=== PATIENT | female | born 1950 | race Caucasian/White ===

== ENCOUNTER 2016-04-28 17:19 | Inpatient (IN) | payer OTHER ==
[2016-04-28] MEDS ORDERED: ROBITUSSIN-DM PO PRN (19:46)
[2016-04-28] MEDS ORDERED: VITAMIN D PO SCH (20:00)
[2016-04-28] MEDS: LOVENOX SUBQ SCH (20:53)
[2016-04-28] MEDS: LEVAQUIN 500 MG/D5W 100 ML IV SCH (20:53)
[2016-04-28] MEDS: PROTONIX IV SCH (20:54)
[2016-04-28] MEDS: SODIUM CHLORIDE 0.9% INJ SCH (20:54)
[2016-04-28] MEDS: PROZAC PO SCH (20:56)
[2016-04-28] MEDS: KLONOPIN PO SCH (20:56)
--- NOTE | 2016-04-28 22:05 | HISTORY AND PHYSICAL ---
CHIEF COMPLAINT: Shortness of breath, cough, and wheezing. HISTORY OF PRESENT ILLNESS: She is a 65-year-old white female, recently discharged from the hospital 2 months ago with acute COPD exacerbation. Patient stopped smoking. She was treated for the last few days outpatient medical management. She was seen in our office with extreme wheezing, unable to walk and basically admitted to the hospital for acute COPD exacerbation. She denied any chest pain, PND, orthopnea. PAST MEDICAL HISTORY: Noncritical left internal carotid artery stenosis, COPD, Crohn's disease, depression, sleep apnea, optic neuritis on the left side, osteoporosis, acid reflux disease, metabolic syndrome. PAST SURGICAL HISTORY: Cholecystectomy, hysterectomy, cataract surgery on the left side, small bowel resection for Crohn's disease by Dr. Kaur. MEDICINES: Abilify 5 mg daily, aspirin 81 mg daily, Breo 1 capsule inhalation daily, Flonase as needed, Prilosec 40 daily, Pentasa 500 three times daily, Proventil as needed, Prozac 40 mg b.i.d., Spiriva 1 capsule inhalation daily, trazodone 100 at bedtime, vitamin D 50,000 units once a week. ALLERGIES: Celebrex, penicillin, Phenergan. SOCIAL HISTORY: . No children. Lives in [place]. Single. Quit smoking 6 months ago. No alcohol. Retired. FAMILY HISTORY: Father . Cause was not known. Mom is still alive. HEALTH MAINTENANCE: Flu vaccine 2015, pneumonia 2014 and last mammography January 2016, colonoscopy 2015. REVIEW OF SYSTEMS: HEENT: No headache. No vision problem. No sore throat. No earache. Neck: No goiter. No lymphadenopathy. No bruit. Cardiopulmonary: No chest pain. Shortness of breath present, cough and wheezing, dyspnea on exertion. No PND, no orthopnea. No swelling of feet. GI: No nausea, vomiting, abdominal pain, diarrhea, altered bowel habit or bleeding per rectum. : No history of hesitancy, frequency. No dysuria. Skin: No skin rashes. Neurologic: No focal symptoms or weakness. PHYSICAL EXAMINATION: VITAL SIGNS: Low-grade fever, tachycardic, blood pressure is stable. 5 feet 4, 219 pounds. HEENT: Atraumatic, normocephalic. Pupils equal, reactive to light. TMs are normal. Nose and throat within normal limits. NECK: Supple. No lymphadenopathy. No goiter. CHEST: Bilateral wheezing. HEART: Sounds are very distant. BREASTS: Exam deferred. ABDOMEN: Belly is soft, nontender. Good bowel sounds. No masses palpable. EXTREMITIES: No peripheral edema, cyanosis. NEUROLOGIC: No obvious neurological deficits. INVESTIGATIONS: Pending. ASSESSMENT AND PLAN: 65-year-old white female, admitted to the hospital basically for acute chronic obstructive pulmonary disease exacerbation, unable to improve with outpatient medical management. PLAN: 1. Oxygen as needed. IV Levaquin, bronchodilators, IV steroids. 2. Deep venous thrombosis and gastrointestinal prophylaxis with Lovenox and Protonix. 3. Reconcile home medications. Follow up on the pending laboratory. Crohn's disease is stable. Initiate standing vaccination protocol.
[2016-04-28] MEDS: SOLU-MEDROL IV SCH (23:46)
[2016-04-28] MEDS: AMBIEN PO PRN (23:49)
[2016-04-28] MEDS: HUMALOG SUBQ SCH (23:52)
[2016-04-29 04:40] LABS: ALLEN TEST YES; BE 0.5 mmoll (-3.0-3.0); BLOOD TYPE ARTERIAL; DRAW SITE R RADIAL; PCO2(98.6) 44 mmHg (35-45); PO2(98.6) 73 mmHg (60-100); SAMPLE BLOOD; pH(98.6) 7.38 (7.35-7.45)
[2016-04-29 04:41] LABS: MODALITY CANNULA
[2016-04-29] MEDS: SOLU-MEDROL IV SCH ×4 (06:07→20:33)
[2016-04-29] MEDS: HUMALOG SUBQ SCH ×3 (06:08→16:00)
[2016-04-29 07:05] LABS: AGAP 16; ALBUMIN 3.5 g/dL (3.5-5.0); ALKALINE PHOSPHATASE 69 U/L (32-104); BUN 12 mg/dL (8-22); CALCIUM 8.6 mg/dL (8.8-10.2); CHLORIDE 100 mmol/L (98-107); COSMO 277; GOT 13 U/L (10-30); GPT 16 U/L (10-36); POTASSIUM 3.8 mmol/L (3.5-5.1); SODIUM 137 mmol/L (136-145); TCO2 21 mmol/L (25-35); TOTAL BILIRUBIN 0.21 mg/dL (0.20-1.00); TOTAL PROTEIN 6.5 g/dL (6.3-8.3)
[2016-04-29 07:12] LABS: BASO% 0.1 % (0.0-0.8); HEMATOCRIT 36.1 % (37.0-47.0); HEMOGLOBIN 12.2 g/dL (12.0-16.0); IMM GRAN# 0.04 X1000 (0.0-0.04); IMM GRAN% 0.2 % (0.0-0.5); MANUAL DIFF NEEDED? YES; MCH 32.1 PG (27-31); MCHC 33.8 g/dL (33-37); MONO# 0.22 X1000 (0.11-0.59); MONO% 1.3 % (1.7-9.3); MPV 9.3 FL (7.4-10.4); NEUT% 91.4 % (42.2-75.2); PLT 312 X1000 (130-400)
[2016-04-29 07:32] LABS: BANDS 4 % (0-1); LYMPHS 14 % (21-51)
[2016-04-29] MEDS: PENTASA PO SCH ×3 (08:23→17:41)
[2016-04-29] MEDS: ABILIFY PO SCH (08:23)
[2016-04-29] MEDS: ASPIRIN PO SCH (08:23)
[2016-04-29] MEDS: BREO ELLIPTA 100/25 MCG INH INH SCH (08:24)
[2016-04-29] MEDS: PROZAC PO SCH ×2 (08:24→20:33)
--- NOTE | 2016-04-29 10:02 | Diag Imaging Result Document ---
PROCEDURE NAME: CHEST-2 VIEWS - 04/29/2016 CHEST X-RAY 2 VIEWS: COMPARISON: 05/22/2015. FINDINGS: Stable COPD. Stable calcified granulomas on the left. There is some slight worsening linear atelectasis or infiltrate in the right lung base. Stable mild scarring in the lung bases. Heart size remains normal. IMPRESSION: Slight worsening in the linear opacity/atelectasis in the right lung base. Otherwise stable COPD with pulmonary scarring.
[2016-04-29] MEDS: DUONEB (A & A) INH PRN ×3 (10:28→20:23)
[2016-04-29] MEDS: KLONOPIN PO SCH (20:32)
[2016-04-29] MEDS: LEVAQUIN 500 MG/D5W 100 ML IV SCH (20:33)
[2016-04-29] MEDS: LOVENOX SUBQ SCH (20:33)
[2016-04-29] MEDS: PROTONIX IV SCH (20:33)
[2016-04-29] MEDS: SODIUM CHLORIDE 0.9% INJ SCH (20:33)
[2016-04-29] MEDS: AMBIEN PO PRN (20:56)
[2016-04-30] MEDS: SOLU-MEDROL IV SCH ×4 (05:17→22:06)
[2016-04-30] MEDS: HUMALOG SUBQ SCH ×4 (06:32→22:51)
[2016-04-30] MEDS: BREO ELLIPTA 100/25 MCG INH INH SCH (08:10)
[2016-04-30] MEDS: DUONEB (A & A) INH PRN ×3 (08:10→19:58)
--- NOTE | 2016-04-30 08:28 | Diag Imaging Result Document ---
PROCEDURE NAME: ANGIOGRAM/PULMONARY ARTERIES - 04/30/2016 CT OF THE CHEST WITH INTRAVENOUS CONTRAST AND CLARITY: FINDINGS: There are no filling defects in the pulmonary arteries. The thoracic aorta is not distended and there is no evidence of dissection. There is a small hiatal hernia. There is emphysematous change. There is a somewhat microlobulated nodular opacity present in the posterior right upper lobe on image 63 measuring a centimeter in diameter. There are no previous thoracic studies available for comparison, however there is a previous abdominal study from 06/04/2014. There is worsened opacification of the right lower lobe than on the previous examination of 06/04/2014 which may largely be due to atelectasis, however the possibility of pneumonia cannot be excluded. There are a number of nonspecific mediastinal nodes of a centimeter in size or smaller. There is apparent right hilar adenopathy. There are calcifications in the left hilum and subcarina. There is some spondylosis in the thoracic spine. IMPRESSION: 1. No evidence of pulmonary embolus. Right upper lobe nodule. The possibility of neoplastic disease cannot be excluded and further evaluation is recommended. 2. Atelectasis versus pneumonia in the right lower lobe. Advise follow up until clear.
[2016-04-30] MEDS: ASPIRIN PO SCH (10:51)
[2016-04-30] MEDS: ABILIFY PO SCH (10:51)
[2016-04-30] MEDS: PROZAC PO SCH ×2 (10:51→22:06)
[2016-04-30] MEDS: PENTASA PO SCH ×3 (10:51→17:23)
[2016-04-30] MEDS ORDERED: SPIRIVA INH ONE (12:00)
[2016-04-30] MEDS: LEVAQUIN 500 MG/D5W 100 ML IV SCH (22:05)
[2016-04-30] MEDS: PROTONIX IV SCH (22:06)
[2016-04-30] MEDS: LOVENOX SUBQ SCH (22:06)
[2016-04-30] MEDS: SODIUM CHLORIDE 0.9% INJ SCH (22:06)
[2016-04-30] MEDS: KLONOPIN PO SCH (22:06)
[2016-04-30] MEDS: AMBIEN PO PRN (22:08)
[2016-05-01] MEDS: SOLU-MEDROL IV SCH ×3 (06:03→21:27)
[2016-05-01] MEDS: HUMALOG SUBQ SCH ×4 (06:38→21:28)
[2016-05-01] MEDS: PENTASA PO SCH ×3 (08:37→16:41)
[2016-05-01] MEDS: PROZAC PO SCH ×2 (08:37→21:27)
[2016-05-01] MEDS: ABILIFY PO SCH (08:37)
[2016-05-01] MEDS: ASPIRIN PO SCH (08:37)
[2016-05-01] MEDS: DUONEB (A & A) INH PRN ×3 (09:48→21:35)
[2016-05-01] MEDS: BREO ELLIPTA 100/25 MCG INH INH SCH (09:50)
[2016-05-01] MEDS: SPIRIVA INH SCH (09:50)
--- NOTE | 2016-05-01 12:24 | PROGRESS NOTE ---
DATE: 05/01/2016 SUBJECTIVE: Ms. Castellanos is a 65-year-old, white female patient, admitted with chest congestion, cough, wheezing, shortness of breath not responding to outpatient treatment. Known case of COPD. Since admission, the patient is doing better. Shortness of breath, cough and chest congestion improving. The patient is ambulating some. She denied any fever or chills. Oral intake is improving. No typical chest pain. Denied abdominal pain, nausea, complaining of diarrhea this morning. No blood or mucus in the stool. The patient does have history of Crohn's disease. No dysuria or hematuria. No leg swelling. Admission history and physical noted. Past medical history significant for COPD, Crohn's disease, sleep apnea, optic neuritis on the left side, osteoporosis, gastritis, and reflux disease, metabolic syndrome. OBJECTIVE: Her vital signs noted. Neck supple. No JVD. Lungs: Bilateral good air entry present. Occasional wheezing. CVS: S1 and S2 heard. Abdomen soft, globular. Bowel sounds present. Extremities: No cyanosis, clubbing. No acute DVT. 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 CONSIDERATION: 1. Acute exacerbation of chronic obstructive pulmonary disease most likely due to bronchitis. Her CTA of the pulmonary artery did reveal a right upper lobe nodule. Atelectasis versus pneumonia in the right lower lobe. 2. Her other problem includes history of Crohn's disease. Gastritis and reflux disease. PLAN: We will continue pulmonary toilet, bronchodilator treatment. Close observation. Admission lab data noted. Accu-Chek results reviewed. I am going to repeat blood work tomorrow. Fall precaution. Overall plan discussed with patient and daughter. They are in agreement.
[2016-05-01] MEDS: LEVAQUIN 500 MG/D5W 100 ML IV SCH (21:26)
[2016-05-01] MEDS: SODIUM CHLORIDE 0.9% INJ SCH (21:27)
[2016-05-01] MEDS: PROTONIX IV SCH (21:27)
[2016-05-01] MEDS: KLONOPIN PO SCH (21:27)
[2016-05-01] MEDS: LOVENOX SUBQ SCH (21:28)
[2016-05-01] MEDS: AMBIEN PO PRN (21:42)
[2016-05-02] MEDS: SOLU-MEDROL IV SCH ×3 (05:02→20:28)
[2016-05-02 06:52] LABS: MANUAL DIFF NEEDED? NO
[2016-05-02 07:13] LABS: BASO% 0.2 % (0.0-0.8); EOS# 0.01 X1000 (0.0-0.7); EOS% 0.1 % (0.0-10.0); HEMATOCRIT 38.5 % (37.0-47.0); HEMOGLOBIN 12.9 g/dL (12.0-16.0); IMM GRAN% 1.4 % (0.0-0.5); LYMPH# 1.65 X1000 (1.2-3.4); LYMPH% 11.1 % (20.5-51.1); MCH 31.9 PG (27-31); MCHC 33.5 g/dL (33-37); MCV 95.3 FL (81-99); MONO# 0.77 X1000 (0.11-0.59); MONO% 5.2 % (1.7-9.3); MPV 8.9 FL (7.4-10.4); PLT 356 X1000 (130-400); RBC 4.04 XMIL (4.2-5.4)
[2016-05-02 07:54] LABS: ALBUMIN 3.4 g/dL (3.5-5.0); ALKALINE PHOSPHATASE 65 U/L (32-104); BUN 22 mg/dL (8-22); CALCIUM 8.4 mg/dL (8.8-10.2); GOT 20 U/L (10-30); GPT 22 U/L (10-36); MAGNESIUM 1.9 mg/dL (1.5-2.7); TCO2 18 mmol/L (25-35); TOTAL BILIRUBIN 0.23 mg/dL (0.20-1.00); TOTAL PROTEIN 6.1 g/dL (6.3-8.3)
[2016-05-02 08:16] LABS: CHLORIDE 99 mmol/L (98-107); POTASSIUM 4.9 mmol/L (3.5-5.1); SODIUM 136 mmol/L (136-145)
[2016-05-02 08:20] LABS: COSMO 276
[2016-05-02 08:21] LABS: AGAP 19
[2016-05-02] MEDS: ASPIRIN PO SCH (09:16)
[2016-05-02] MEDS: PROZAC PO SCH ×2 (09:16→20:28)
[2016-05-02] MEDS: ABILIFY PO SCH (09:16)
[2016-05-02] MEDS: PENTASA PO SCH ×3 (09:16→17:19)
[2016-05-02] MEDS: SPIRIVA INH SCH (09:48)
[2016-05-02] MEDS: BREO ELLIPTA 100/25 MCG INH INH SCH (09:48)
[2016-05-02] MEDS: DUONEB (A & A) INH PRN ×2 (09:49→21:40)
[2016-05-02] MEDS: HUMALOG SUBQ SCH ×4 (10:22→21:30)
[2016-05-02] MEDS: FLAGYL PO SCH ×2 (12:42→20:28)
--- NOTE | 2016-05-02 15:13 | PROGRESS NOTE ---
DATE: 05/02/2016 SUBJECTIVE: Ms. Eryn Castellanos is doing better. Since I put her on oxygen her breathing and chest congestion is improving. Does have mild cough with scanty sputum production. No high-grade fever or chills. Occasional mild diarrhea. No nausea, no dysuria or hematuria. No typical chest pain. OBJECTIVE: Vital signs: Her vital signs reviewed. Neck: Is supple. No JVD. Lungs: Bibasilar crepitations. Occasional wheezing. CVS: S1 and S2 heard. Abdomen: Soft. No distention. Bowel sounds present. Extremities: No cyanosis, clubbing. No acute DVT. 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 LABORATORY DATA: Glucose site count 14.81, hemoglobin 12.9, hematocrit 38.5, platelet count 356,000. Electrolytes: BUN was 22, creatinine 0.8. CONSIDERATION: 1. Chronic obstructive pulmonary disease exacerbation. 2. Possible pneumonia. 3. History of Crohn's disease. 4. Pulmonary nodule. 5. Leukocytosis. PLAN: I am going to add Flagyl for possible colitis. Continue rest of the treatment. Close observation. Overall plan discussed with the patient and she is in agreement.
[2016-05-02] MEDS: LEVAQUIN 500 MG/D5W 100 ML IV SCH (20:27)
[2016-05-02] MEDS: KLONOPIN PO SCH (20:28)
[2016-05-02] MEDS: LOVENOX SUBQ SCH (20:28)
[2016-05-02] MEDS: SODIUM CHLORIDE 0.9% INJ SCH (20:28)
[2016-05-02] MEDS: PROTONIX IV SCH (20:28)
[2016-05-02] MEDS: AMBIEN PO PRN (20:29)
[2016-05-03] MEDS: FLAGYL PO SCH ×3 (05:08→22:07)
[2016-05-03] MEDS: SOLU-MEDROL IV SCH ×2 (05:09→17:10)
[2016-05-03] MEDS: HUMALOG SUBQ SCH ×4 (06:27→23:52)
[2016-05-03] MEDS: SPIRIVA INH SCH (08:44)
[2016-05-03] MEDS: BREO ELLIPTA 100/25 MCG INH INH SCH (08:44)
[2016-05-03] MEDS: PROZAC PO SCH ×2 (09:19→22:05)
[2016-05-03] MEDS: ABILIFY PO SCH (09:19)
[2016-05-03] MEDS: ASPIRIN PO SCH (09:19)
[2016-05-03] MEDS: PENTASA PO SCH ×3 (09:20→17:09)
--- NOTE | 2016-05-03 11:27 | PROGRESS NOTE ---
DATE: 05/03/2016 OBJECTIVE: Vital Signs: Ms. Castellanos's vital signs are stable. Blood pressure is 178/82. LABORATORY DATA: Her white count is 14.81, hemoglobin 12.9, hematocrit 35.5 cm. She is on Flagyl, as well as Solu-Medrol. Stool is negative for Clostridium difficile. BUN is 22. She is tolerating oral feedings very well and the diarrhea is under control. We will continue with the current management. -5
[2016-05-03] MEDS: DUONEB (A & A) INH PRN (15:40)
[2016-05-03] MEDS: LEVAQUIN 500 MG/D5W 100 ML IV SCH (22:05)
[2016-05-03] MEDS: AMBIEN PO PRN (22:06)
[2016-05-03] MEDS: KLONOPIN PO SCH (22:06)
[2016-05-03] MEDS: PROTONIX IV SCH (22:07)
[2016-05-03] MEDS: SODIUM CHLORIDE 0.9% INJ SCH (22:07)
[2016-05-03] MEDS: LOVENOX SUBQ SCH (22:08)
[2016-05-04] MEDS: FLAGYL PO SCH (05:02)
[2016-05-04] MEDS: SOLU-MEDROL IV SCH (05:02)
[2016-05-04 07:29] VITALS: BP 173/80
[2016-05-04] MEDS: HUMALOG SUBQ SCH (08:28)
[2016-05-04] MEDS: PENTASA PO SCH (08:29)
[2016-05-04] MEDS: PROZAC PO SCH (08:29)
[2016-05-04] MEDS: ASPIRIN PO SCH (08:30)
[2016-05-04] MEDS: ABILIFY PO SCH (08:30)
--- NOTE | 2016-05-04 19:29 | DISCHARGE SUMMARY ---
ADMISSION DATE: 04/28/2016 DISCHARGE DATE: 05/04/2016 DISCHARGING DIAGNOSIS: Acute chronic obstructive pulmonary disease exacerbation with fibrosis and right lower lobe pneumonia. SECONDARY DIAGNOSES: 1. Right upper lobe nodule, spiculated, pending PET scan. 2. Noncritical left internal carotid artery stenosis. 3. Chronic obstructive pulmonary disease. 4. Crohn disease. 5. Depression. 6. Sleep apnea. 7. Optic neuritis on the left side. 8. Osteoporosis. 9. Acid reflux disease. 10. Metabolic syndrome. BRIEF HISTORY: Please see the H and P that was done on 04/28/2016. In brief, she is a 65-year- old white female, who was admitted to the hospital with shortness of breath, cough, and wheezing. Not able to improve with outpatient medical management. HOSPITAL COURSE: She was given oxygen, bronchodilators, IV steroids, IV antibiotics. CT of the chest with pulmonary arteriogram reported no evidence of PE, right upper lobe nodule, spiculated, and atelectasis versus pneumonia in the right lower lobe. The patient is much improved at the time of discharge. Pneumococcal vaccine was given 03/12/2016. DISCHARGE INSTRUCTIONS: 1. Prilosec 40 mg daily. 2. Pentasa 1000 mg p.o. t.i.d. 3. Abilify 5 mg daily. 4. Aspirin 81 mg daily. 5. Trazodone 100 mg in the evening. 6. Vitamin D 50,000 units 7 days. 7. ProAir as needed. 8. Breo 1 capsule inhalation daily. 9. Spiriva 1 capsule inhalation daily. 10. Klonopin 0.5 at bedtime. 11. Prozac 40 mg p.o. b.i.d. 12. Levaquin 500 mg daily for 7 days. 13. Medrol Dosepak. 14. An outpatient PET scan for follow up on right upper lobe nodule. 15. Follow up in my office next week.
== END 2016-05-04 09:51 | disposition home or self-care (01) | DRG 190 ==
LOC: DIRADM 17:19 → 3N 18:39
PROVIDERS: ADMIT Internal Medicine; ATTEND Internal Medicine
DX: J44.0 Chronic obstructive pulmonary disease with (acute) lower respiratory infection (principal); J18.9 Pneumonia, unspecified organism; E88.81 Metabolic syndrome and other insulin resistance; K50.90 Crohn's disease, unspecified, without complications; I65.22 Occlusion and stenosis of left carotid artery; H46.9 Unspecified optic neuritis; J44.1 Chronic obstructive pulmonary disease with (acute) exacerbation; F32.9 Major depressive disorder, single episode, unspecified; G47.30 Sleep apnea, unspecified; M81.0 Age-related osteoporosis without current pathological fracture; K52.9 Noninfective gastroenteritis and colitis, unspecified; R91.1 Solitary pulmonary nodule; K21.9 Gastro-esophageal reflux disease without esophagitis; Z79.899 Other long term (current) drug therapy; Z90.49 Acquired absence of other specified parts of digestive tract; Z79.82 Long term (current) use of aspirin; Z87.891 Personal history of nicotine dependence; Z79.51 Long term (current) use of inhaled steroids
CPT/HCPCS: 71020; 71275; 80053; 82805; 82948; 83735; 83880; 84484; 85025; 87324; 89055; 94640; 94761; C9113; J1650; J1815; J2920; J2930; Q9967; S0164

== ENCOUNTER 2016-10-12 15:18 | Inpatient (IN) ==
[2016-10-12] MEDS ORDERED: TESSALON PO PRN (17:26)
[2016-10-12 17:55] LABS: ALLEN TEST YES; BE 1.8 mmoll (-3.0-3.0); BLOOD TYPE ARTERIAL; DRAW SITE R RADIAL; METHB 0.2 % (0.0-1.5); O2(CT) 16.8 mL/dL (15.0-23.0); PCO2(98.6) 48 mmHg (35-45); PO2(98.6) 83 mmHg (60-100); SAMPLE BLOOD; SAO2 96.6 % (95.0-100.0); THB 12.4 g/dL (11.5-17.4); pH(98.6) 7.37 (7.35-7.45)
[2016-10-12 17:56] LABS: MODALITY CANNULA
[2016-10-12] MEDS ORDERED: VITAMIN D PO SCH (18:00)
[2016-10-12 18:29] LABS: AGAP 12; ALBUMIN 3.9 g/dL (3.5-5.0); ALKALINE PHOSPHATASE 76 U/L (32-104); BUN 14 mg/dL (8-22); CALCIUM 8.8 mg/dL (8.8-10.2); CHLORIDE 104 mmol/L (98-107); COSMO 283; GOT 11 U/L (10-30); GPT 16 U/L (10-36); POTASSIUM 3.6 mmol/L (3.5-5.1); SODIUM 142 mmol/L (136-145); TCO2 26 mmol/L (25-35); TOTAL BILIRUBIN 0.15 mg/dL (0.20-1.00); TOTAL PROTEIN 6.2 g/dL (6.3-8.3)
--- NOTE | 2016-10-12 19:27 | HISTORY AND PHYSICAL ---
CHIEF COMPLAINT: Shortness of breath, cough, and wheezing. HISTORY OF PRESENT ILLNESS: She is a 65-year-old white female who was seen in our clinic last Tuesday with URI symptoms and treated as an outpatient, failed to improve with shortness of breath, cough, wheezing, mostly URI symptoms. She is hypoxic on room air and she is markedly wheezing. Based on the clinical grounds, she has been hospitalized for acute COPD exacerbation. She also has a spiculated lesion in the right upper lobe which was improved on follow up CT in June 2016. She stopped smoking. Basically, admitted to the hospital for acute COPD exacerbation. REVIEW OF SYSTEMS: HEENT: Congestion nose. No headache. No vision problem. No earache. Postnasal drainage. Neck: No neck pain. Cardiopulmonary: Shortness of breath, wheezing. No chest pain. No PND. No orthopnea. GI: No nausea, vomiting. History of Crohn's disease, stable. : No history of hesitancy, frequency, dysuria. Musculoskeletal: No swelling of legs. No joint pain. Neurologic: No focal symptoms or weakness. PAST MEDICAL HISTORY: Noncritical left internal carotid artery stenosis, COPD, Crohn disease, depression, sleep apnea, optic neuritis left-sided, resolving, osteoporosis, acid reflux disease, secondary cushingoid metabolic syndrome. PAST SURGICAL HISTORY: Cholecystectomy, hysterectomy, cataract surgery on the left side, small bowel resection for Crohn disease by Dr. Kaur. MEDICATIONS: Abilify 5 mg daily, aspirin 81 mg daily, Breo 1 capsule daily, Flonase as needed, Prilosec 40 daily, Pentasa 500 t.i.d., Proventil as needed, Prozac 40 mg p.o. b.i.d., Spiriva 1 capsule inhalation daily, trazodone 100 at bedtime, Vitamin D 66533 once a week. ALLERGIES: Celebrex, penicillin, Phenergan. SOCIAL HISTORY: , no children. Lives in [place]. Single. Quit smoking 6 months ago. No alcohol. Retired. FAMILY HISTORY: Father , cause was not known. Mom is still alive. HEALTH MAINTENANCE: Flu vaccine in 2015. Pneumococcal vaccine in 2014. Last mammography January 2016. Colonoscopy in 2015. PHYSICAL EXAMINATION: VITAL SIGNS: She is afebrile. Vitals are stable. She is 5 feet 4 inches, 205 pounds. On 2 L nasal cannula 100%. GENERAL: In mild respiratory distress. HEENT: TMs are normal. Nose and throat congested. Postnasal drainage. NECK: Supple. No lymphadenopathy. No bruit. JVD unable to see. CHEST: Bilateral air entry, wheezing. HEART: Sounds are regular. BREASTS: Exam deferred. ABDOMEN: Belly is soft, obese, nontender. Good bowel sounds. No masses palpable. EXTREMITIES: No peripheral edema, cyanosis. NEUROLOGIC: No obvious neurological deficits. INVESTIGATION: D-dimer is negative. ABG, pH is 7.37, pCO2 48, PO2 83 on 2 L. SMA 7 is normal. LFTs were normal. Troponin is normal. ProBNP is normal. Chest x-ray is pending. ASSESSMENT AND PLAN: 1. This is a 65-year-old white female admitted to the hospital for acute chronic obstructive pulmonary disease exacerbation. Plan is oxygen, bronchodilators, IV antibiotics, IV steroids. 2. Reconcile home medicines. 3. Deep vein thrombosis and gastrointestinal prophylaxis with Lovenox and Protonix. 4. Crohn disease. Stable. 5. Vaccinations are up-to-date. 6. Symptomatic treatment for cough and follow up on the pending labs. cc: Flo Donohue MD
--- NOTE | 2016-10-12 19:59 | Diag Imaging Result Doc PS360 ---
EXAM: CHEST-2 VIEWS HISTORY: SOB TECHNIQUE: PA and lateral chest COMMENT: There is COPD. There are granulomatous calcifications in the left apex and lower chest. The appearance of the chest has not changed significantly since 04/29/2016. IMPRESSION: COPD. No acute disease. Electronically signed by Julio Reed 10/12/2016 7:57 PM
[2016-10-12] MEDS: PROTONIX IV SCH (20:44)
[2016-10-12] MEDS: LEVAQUIN 500 MG/D5W 500 MG/100 ML IVPB IV SCH (20:44)
[2016-10-12] MEDS: PROZAC PO SCH (20:45)
[2016-10-12] MEDS: LOVENOX SUBQ SCH (20:45)
[2016-10-12] MEDS: SODIUM CHLORIDE 0.9% INJ SCH (20:45)
[2016-10-12] MEDS: KLONOPIN PO SCH (20:46)
[2016-10-12] MEDS: SOLU-MEDROL IV SCH (20:46)
[2016-10-12] MEDS: DESYREL PO PRN (21:02)
[2016-10-12] MEDS: HUMALOG SUBQ SCH (22:25)
[2016-10-13] MEDS: SOLU-MEDROL IV SCH ×3 (01:54→17:07)
--- NOTE | 2016-10-13 05:34 | EKG Report ---
Test Performed on : 10/12/2016 5:27:12 PM Test Reason : chest pain Blood Pressure : / mmHG Vent. Rate : 093 BPM Atrial Rate : 093 BPM P-R Int : 146 ms QRS Dur : 076 ms QT Int : 356 ms P-R-T Axes : 073 -10 070 degrees QTc Int : 442 ms Normal sinus rhythm. Normal ECG When compared with ECG of 22-MAY-2015 16:02, fusion complexes are no longer present QRS axis shifted right Confirmed by Bradford WHITE, Esteban Harley ([id number]) on 10/15/2016 9:10:22 AM
[2016-10-13] MEDS: HUMALOG SUBQ SCH ×4 (06:53→21:50)
[2016-10-13] MEDS: BREO ELLIPTA 100/25 MCG INH INH SCH (07:52)
[2016-10-13] MEDS: SPIRIVA INH SCH (07:52)
[2016-10-13] MEDS: ABILIFY PO SCH (08:40)
[2016-10-13] MEDS: ASPIRIN PO SCH (08:40)
[2016-10-13] MEDS: PENTASA PO SCH ×3 (08:40→17:08)
[2016-10-13] MEDS: PROZAC PO SCH ×2 (08:40→21:33)
[2016-10-13] MEDS: CYANOCOBALAMIN IM SCH (10:12)
[2016-10-13] MEDS: BENTYL PO PRN (14:04)
[2016-10-13] MEDS: DUONEB (A & A) INH SCH ×4 (16:14→23:52)
[2016-10-13] MEDS ORDERED: DUONEB (A & A) ONE (19:09)
--- NOTE | 2016-10-13 20:09 | PROGRESS NOTE ---
DATE: 10/13/2016 SUBJECTIVE: In the last 24 hours, the patient still has dyspnea on exertion and coughing. Complains of diarrhea, loose stools. REVIEW OF SYSTEMS: Dyspnea on exertion. No chest pain. No swelling of feet. PHYSICAL EXAMINATION: Vital Signs: Afebrile. Vitals are stable. HEENT Examination: Narrow oral cavity, on oxygen. Postnasal drainage. Chest: No significant wheezing. Heart: Sounds are regular. Abdomen: Belly is soft, obese, nontender. Good bowel sounds. Extremities: No peripheral edema, cyanosis or clubbing. Neurologic: No neurological deficits. INVESTIGATIONS: ProBNP is normal. Cardiac enzymes were normal. Chest x-ray: COPD changes. EKG: Normal sinus, nothing acute. ASSESSMENT AND PLAN: 1. Acute chronic obstructive pulmonary disease exacerbation. Continue on Levaquin, IV steroids, bronchodilators. 2. Crohn's disease. No diarrhea. Probiotics. Follow up on stool cultures. Bentyl as needed. 3. DVT/GI prophylaxis respectively. 4. Labs were discussed with the patient. LENGTH OF DOCUMENTATION: 25 minutes. cc: Flo Donohue MD
[2016-10-13] MEDS: LOVENOX SUBQ SCH (21:32)
[2016-10-13] MEDS: LEVAQUIN 500 MG/D5W 500 MG/100 ML IVPB IV SCH (21:32)
[2016-10-13] MEDS: PROTONIX IV SCH (21:32)
[2016-10-13] MEDS: DESYREL PO PRN (21:33)
[2016-10-13] MEDS: SODIUM CHLORIDE 0.9% INJ SCH (21:33)
[2016-10-13] MEDS: KLONOPIN PO SCH (21:33)
[2016-10-14] MEDS: SOLU-MEDROL IV SCH ×3 (03:03→16:33)
[2016-10-14] MEDS: DUONEB (A & A) INH SCH ×5 (03:26→22:31)
[2016-10-14] MEDS: HUMALOG SUBQ SCH ×4 (06:04→22:39)
[2016-10-14] MEDS: BREO ELLIPTA 100/25 MCG INH INH SCH (08:16)
[2016-10-14] MEDS: SPIRIVA INH SCH (08:16)
[2016-10-14] MEDS: ASPIRIN PO SCH (09:38)
[2016-10-14] MEDS: ABILIFY PO SCH (09:38)
[2016-10-14] MEDS: PROZAC PO SCH ×2 (09:38→20:06)
[2016-10-14] MEDS: PENTASA PO SCH ×3 (09:38→16:33)
[2016-10-14] MEDS: CYANOCOBALAMIN IM SCH (09:39)
[2016-10-14] MEDS: BENTYL PO PRN (13:02)
--- NOTE | 2016-10-14 19:43 | PROGRESS NOTE ---
DATE: 10/14/2016 SUBJECTIVE: Breathing is slowly improving. Stool cultures were obtained for diarrhea. REVIEW OF SYSTEMS: Lungs: Shortness of breath, improving. GI: No symptoms. PHYSICAL EXAMINATION: Vital signs: Afebrile, blood pressure is 140/79, 2 L nasal cannula 96%. HEENT: Within normal limits. Neck: Supple. No lymphadenopathy. Chest: Bilateral air entry. Scattered wheezing. Heart: Sounds are regular. Abdomen: Belly is soft, nontender. Good bowel sounds. Extremities: No peripheral edema, cyanosis. Neurologic: No obvious neurological deficits. DIAGNOSTICS: Stool samples were negative. ASSESSMENT AND PLAN: 1. Acute chronic obstructive pulmonary disease exacerbation. Stable. Continue intravenous steroids. We will decrease the steroids today. Bronchodilators, intravenous antibiotics. 2. Deep venous thrombosis prophylaxis with Lovenox. 3. History of Crohn's disease. Stable. LEVEL OF DOCUMENTATION: 15 minutes. cc: Flo Donohue MD
[2016-10-14] MEDS: KLONOPIN PO SCH (20:06)
[2016-10-14] MEDS: PROTONIX IV SCH (20:06)
[2016-10-14] MEDS: SODIUM CHLORIDE 0.9% INJ SCH (20:06)
[2016-10-14] MEDS: LEVAQUIN 500 MG/D5W 500 MG/100 ML IVPB IV SCH (20:07)
[2016-10-14] MEDS: LOVENOX SUBQ SCH (20:07)
[2016-10-14] MEDS: DESYREL PO PRN (22:00)
[2016-10-15] MEDS: SOLU-MEDROL IV SCH ×2 (01:24→09:31)
[2016-10-15] MEDS: DUONEB (A & A) INH SCH ×4 (03:39→11:07)
[2016-10-15] MEDS: HUMALOG SUBQ SCH ×2 (06:11→14:23)
[2016-10-15] MEDS: SPIRIVA INH SCH (07:38)
[2016-10-15] MEDS: BREO ELLIPTA 100/25 MCG INH INH SCH (07:38)
[2016-10-15] MEDS: PENTASA PO SCH ×2 (09:30→14:27)
[2016-10-15] MEDS: PROZAC PO SCH (09:30)
[2016-10-15] MEDS: ABILIFY PO SCH (09:30)
[2016-10-15] MEDS: ASPIRIN PO SCH (09:31)
[2016-10-15] MEDS: CYANOCOBALAMIN IM SCH (09:31)
[2016-10-15] MEDS: BENTYL PO PRN (09:38)
[2016-10-15 15:14] VITALS: BP 146/72
--- NOTE | 2016-10-15 20:25 | DISCHARGE SUMMARY ---
ADMISSION DATE: 10/12/2016 DISCHARGE DATE: 10/15/2016 DISCHARGE DIAGNOSIS: Acute chronic obstructive pulmonary disease exacerbation. SECONDARY DIAGNOSES: 1. Chronic obstructive pulmonary disease, dependent on oxygen. 2. Crohn's disease, stable. 3. Sleep apnea. 4. Osteoporosis. 5. Acid reflux disease. 6. Metabolic syndrome, secondary cushingoid feature. 7. Anxiety/depression. 8. Resolving right upper lobe nodule on recent CT scan June 2016. BRIEF HISTORY: Please see the H and P that was done on 10/12/2016. In brief, she is a 65-year-old white female with a known history of COPD, sleep apnea, allergic rhinitis admitted to the hospital with shortness of breath, cough, wheezing, unable to improve with outpatient medical management. Apparently she has some mold in the house and I am strongly suspecting possible allergic component. HOSPITAL COURSE: She was given oxygen, IV antibiotics, IV steroids, bronchodilators. She was using her own CPAP machine. Further workup with chest x-ray stable as well as laboratory data. The patient has some diarrhea intermittent with Crohn's disease. Follow-up stool samples was negative for C. difficile and occult blood. It was better after Bentyl. Rest of the hospital course was uneventful. LABS: ABG: pH 7.37 pCO2 48, PO2 83 on 2 L. SMA 7 was normal. LFTs were normal. ProBNP, cardiac enzymes were normal. Chest x-ray was stable. EKG normal sinus, nothing acute. DISCHARGE INSTRUCTIONS: 1. Prilosec 40 mg daily. 2. Pentasa 1000 p.o. t.i.d. 3. Abilify 5 mg daily. 4. Aspirin 81 mg daily. 5. Trazodone 100 mg daily. 6. Vitamin D 50,000 units once a week. 7. Breo 100/25, 1 puff daily. 8. Spiriva 1 puff daily. 9. Klonopin 0.5 at bedtime. 10. Prozac 40 p.o. b.i.d. 11. Medrol Dosepak. 12. Levaquin 500 daily. 13. Continue to abstain from smoking. 14. Continue on CPAP machine. 15. Pneumococcal vaccine 03/12/2016. 16. Follow up in my office next week. cc: Flo Donohue MD
== END 2016-10-15 15:37 | disposition home or self-care (01) ==
LOC: DIRADM 15:18 → 3N 17:00
PROVIDERS: ADMIT Internal Medicine; ATTEND Internal Medicine